=== PATIENT | female | born 1985 | race Caucasian/White ===

== ENCOUNTER 2021-01-22 20:20 | Emergency (ER) | payer OTHER, SELFPAY ==
[2021-01-22 20:21] VITALS: BP 144/104; PULSE 96; RESP 22; TEMP 36.8; O2SAT 99; BMI 39.1
--- NOTE | 2021-01-22 20:34 | CT_ITS ---
PROCEDURE INFORMATION: Exam: CT Abdomen And Pelvis Without Contrast Exam date and time: 01/22/2021 8:34 PM Age: 35 years old Clinical indication: Abdominal pain; Patient HX: Right flank pain for one day with nausea and vomiting. R/O kidney stone. ; Additional info: RT flank pain TECHNIQUE: Imaging protocol: Computed tomography of the abdomen and pelvis without contrast. Radiation optimization: All CT scans at this facility use at least one of these dose optimization techniques: automated exposure control; mA and/or kV adjustment per patient size (includes targeted exams where dose is matched to clinical indication); or iterative reconstruction. COMPARISON: No relevant prior studies available. FINDINGS: Lungs: No mass/infiltrate at either lung base. No pleural effusion. Liver: The liver is normal in size and attenuation. No intrahepatic biliary dilitation. Gallbladder and bile ducts: Normal. No calcified stones. No ductal dilation. Gallbladder wall thickness is normal. Pancreas: Normal. No ductal dilation. Spleen: Normal. No splenomegaly. Adrenal glands: Normal. No mass. Kidneys and ureters: There is mild right hydronephrosis, proximal and mid right hydroureter. In the region of the mid right ureter there is a 2 mm weakly radiopaque density within the ureter suggesting a calculus in this location. Series 3, image 69. The distal right ureter does not appear dilated. No evidence of right nephrolithiasis. The left kidney and left ureter appear unremarkable. Stomach and bowel: Unremarkable. No obstruction. No mucosal thickening. Small bowel mesentery is normal. Appendix: Unremarkable. Intraperitoneal space: Unremarkable. No free air. No significant fluid collection. Vasculature: Unremarkable. No abdominal aortic aneurysm. Lymph nodes: Unremarkable. No enlarged lymph nodes. Urinary bladder: Unremarkable as visualized. Reproductive: Unremarkable as visualized. Bones/joints: Unremarkable. No acute fracture. Soft tissues: Unremarkable. IMPRESSION: There is a weakly radiopaque 2 mm density noted within the mid right ureter with right hydronephrosis and mild dilatation of the right ureter proximal to the density. Findings are compatible with obstructive uropathy in this location.
[2021-01-22 20:43] LABS: Basophils # 0.2 K/mm3 (0-0.2); Basophils % 0.9 % (0.1-2.0); Eosinophils # 0.2 K/mm3 (0.0-0.4); Eosinophils % 1.2 % (0.1-12.0); Hematocrit 41.2 % (37.0-47.0); Hemoglobin 14.3 g/dL (12.2-16.2); Lymphocytes # 5.3 K/mm3 (0.7-4.5); Lymphocytes % 31.1 % (10-50); Mean Corpuscular HGB Conc 34.8 g/dL (31.8-35.4); Mean Corpuscular Hemoglobin 31.2 pg (27.0-31.2); Mean Corpuscular Volume 89.5 fl (81-99); Mean Platelet Volume 7.8 fl (7.4-10.4); Monocytes # 0.8 K/mm3 (0.1-1.0); Monocytes % 4.7 % (1.7-9.3); Neutrophils # 10.5 K/mm3 (1.8-7.8); Neutrophils % 62.2 % (37.0-80.0); Platelet Count 425 K/mm3 (142-424); Red Cell Distribution Width 12.6 % (11.5-17.5)
[2021-01-22 20:44] LABS: Chloride 104 mmol/L (98-107); MANUAL DIFFERENTIAL MANUAL DIFFERENTIAL (MANUAL DIFF); Potassium 3.8 mmoL/L (3.5-5.1); Sodium 137 mmol/L (136-145)
[2021-01-22 20:46] LABS: Amylase 49 U/L (30-110); Blood Urea Nitrogen 11 mg/dl (7-17); Creatinine Clearance Estimated 203 mL/min (50-200); Estimated Glomerular Filt Rate 96 ml/min (>60); GFR (African American) 116 ML/MIN (>60)
[2021-01-22 20:47] LABS: Alanine Aminotransferase 35 U/L (12-78); Albumin Level 4.6 g/dl (3.5-5.0); Albumin/Globulin Ratio 1.5 (1.1-1.8); Alkaline Phosphatase 53 U/L (38-126); Anion Gap 16.8 mEq/L (5-15); Aspartate Amino Transferase 28 U/L (14-36); Bilirubin,Total 0.5 mg/dl (0.2-1.3); Calcium 9.4 mg/dl (8.4-10.2); Carbon Dioxide 20 mmol/L (22.0-30.0); Globulin 3.1 g/dL (1.3-3.2); Glucose 105 mg/dl (74-100); Lipase 53 U/L (23-300); Total Protein,Serum 7.7 g/dl (6.3-8.2)
[2021-01-22 20:53] LABS: C-Reactive Protein 8.9 mg/L (0-4)
[2021-01-22 21:02] LABS: Microscopic, Urine URINE MICROSCOPIC (MICROSCOPIC)
[2021-01-22 21:04] LABS: Procalcitonin 0.047 ng/mL (0.0-2.0)
[2021-01-22 21:13] LABS: HCG Qualitative, Serum Negative (Negative)
[2021-01-22 21:14] LABS: Erythrocyte Sedimentation Rate 47 mm/hr (0-20)
[2021-01-22 21:15] LABS: Appearance,Urine OTHER (Clear); Bilirubin,Urine Negative (Negative); Blood, Urine 3+ (Negative); Color,Urine ORANGE (Yellow); Glucose,Urine (UA) TRACE (Negative); Ketones,Urine TRACE (Negative); Leukocyte Esterase,Urine 2+ (Negative); Nitrate,Urine POSITIVE (Negative); Protein,Urine 3+ (Negative)
[2021-01-22 21:27] LABS: Urine Pregnancy, HCG Qual. Negative (Negative)
[2021-01-22 21:32] LABS: Eosinophils % 2 % (0-3); Lymphocytes % 39 % (10-50); Monocytes % 1 % (2-9); Neutrophils % 58 % (42-76); Platelet Estimate Normal; RBC Morphology Normal; Total Cells Counted 100
--- NOTE | 2021-01-22 21:33 | [facility].EDNVD ---
ED Disposition Clinical Impression: Renal colic on right side Disposition: Home, Self-Care Condition on Discharge: Good Instructions: DI for Kidney Stones Additional Instructions: fluids and use meds and see urology and pcp Prescriptions: Tamsulosin HCl [Flomax 0.4mg capsule] 0.4 mg PO HS #10 cap Transmission Status: Pending to [id number] Referrals: Provider,Rochelle, [Primary Care Provider] - Ramirez Parsons MD [Staff Physician] - - Critical Care Critical Care Time: No Attestation: On 01/22/21, the high probability of a clinically significant, sudden or life threatening deterioration of the following system(s) required my full and direct attention, intervention and personal management. The time I documented below is in addition to time spent performing reported procedures but includes the following listed in this critical care notation. Medical Decision Making - Medical Records Medical records reviewed: Yes: I reviewed the patient's medical records. - Jeffery Inquiry Pt receiving controlled substance: No Vital Signs: 01/22/21 20:21 Temperature 98.2 F Temperature Source Oral Pulse Rate [Right] 96 H Respiratory Rate 22 Blood Pressure [Right Arm] 144/104 H Blood Pressure Mean [Right Arm] 117 02 Sat by Pulse Oximetry 99 - Lab Data Lab results reviewed: Yes: I reviewed the patient's lab results. Lab Results 01/22/21 20:28: Urine Color [place], Urine Appearance Other, Urine pH 8.0, Ur Specific [place] 1.020, Urine Protein 3+, Urine Glucose (UA) Trace, Urine Ketones Trace, Urine Blood 3+, Urine Nitrate Positive, Urine Bilirubin Negative, Urine Urobilinogen 4.0, Ur Leukocyte Esterase 2+ A, Urine RBC 10-20, Urine WBC Tntc, Ur Squamous Epith Cells 3-5, Urine Bacteria 2+ 01/22/21 20:28: Urine HCG, Qual Negative 01/22/21 20:28: WBC 17.0 H, RBC 4.60, Hgb 14.3, Hct 41.2, MCV 89.5, MCH 31.2, MCHC 34.8, RDW 12.6, Plt Count 425 H, MPV 7.8, Neut % (Auto) 62.2, Lymph % (Auto) 31.1, [place] % (Auto) 4.7, Eos % (Auto) 1.2, Baso % (Auto) 0.9, Neut # (Auto) 10.5 H, Lymph # (Auto) 5.3 H, [place] # (Auto) 0.8, Eos # (Auto) 0.2, Baso # (Auto) 0.2, Total Counted 100, Neutrophils % (Manual) 58, Lymphocytes % (Manual) 39, Monocytes % (Manual) 1 L, Eosinophils % (Manual) 2, Platelet Estimate Normal, RBC Morphology Normal 01/22/21 20:28: Sodium 137, Potassium 3.8, Chloride 104, Carbon Dioxide 20 L, Anion Gap 16.8 H, BUN 11, Creatinine 0.70, Estimated Creat Clear 203, Estimated GFR 96, Est GFR ( Amer) 116, Glucose 105 H, Calcium 9.4, Total Bilirubin 0.5, AST 28, ALT 35, Alkaline Phosphatase 53, C-Reactive Protein 8.9 H, Total Protein 7.7, Albumin 4.6, Globulin 3.1, Albumin/Globulin Ratio 1.5, Amylase 49, Lipase 53 01/22/21 20:28: ESR 47 H 01/22/21 20:28: Procalcitonin 0.047 01/22/21 20:28: Serum HCG, Qual Negative Result diagrams: 01/22/21 20:28 01/22/21 20:28 Orders (Tests/Meds): ED MEDICATIONS Generic Name Dose Route Start Last Admin Trade Name Freq PRN Reason Stop Dose Admin Sodium Chloride 1,000 mls @ 999 mls/hr 01/22/21 20:45 01/22/21 20:44 Sod Chlor 0.9% 1000ml Bag IV 01/22/21 21:45 999 mls/hr .[id number] THE[place] Administration Discontinued Medications Generic Name Dose Route Start Last Admin Trade Name Freq PRN Reason Stop Dose Admin Ketorolac Tromethamine 30 mg 01/22/21 20:35 01/22/21 20:44 Ketorolac 30mg/Ml Vial IV 01/22/21 20:36 30 mg ONCE ONE Administration Ondansetron HCl 4 mg 01/22/21 20:35 01/22/21 20:44 Ondansetron 4mg/2ml Vial IV 01/22/21 20:36 4 mg ONCE ONE Administration Tamsulosin HCl 0.4 mg 01/23/21 22:17 Tamsulosin 0.4mg Capsule PO 01/23/21 22:18 ONCE ONE Tamsulosin HCl 0.4 mg 01/22/21 22:17 01/22/21 22:18 Tamsulosin 0.4mg Capsule PO 01/22/21 22:18 0.4 mg ONCE ONE Administration ORDERS Category Date Time Status Urine Culture Stat Micro 01/22/21 20:28 Received - CT Data CT Scan: Abdomen, Pelvis Time Received: 22:45
[2021-01-22 22:21] LABS: Bacteria,Urine 2+ /lpf; WBC,Urine TNTC #/hpf (0-3)
[2021-01-22 22:47] VITALS: BP 128/88; PULSE 82; RESP 18; TEMP 36.7; O2SAT 99
== END 2021-01-22 22:52 | disposition home or self-care (01) ==
PROVIDERS: Emergency Provider Emergency Medicine
DX: N23 Unspecified renal colic (principal); R10.31 Right lower quadrant pain
CPT/HCPCS: 74176; 80053; 81001; 81025; 82150; 83690; 84145; 84703; 85007; 85025; 85651; 86140; 87086; 87088; 87186; 96365; 96375; 99283; J2405